=== PATIENT | male | born 1990 | race Caucasian/White ===

== ENCOUNTER 2018-11-15 12:21 | Inpatient (IN) | payer OTHER ==
[2018-11-15 15:08] VITALS: BMI 22.4
--- NOTE | 2018-11-15 15:42 | HP ---
COWS - Scale Resting Pulse: 1= [place] 81-100 Sweatin= Chills/Flushing Restless Observation: 1= Difficult to Sit Still Pupil Size: 0= Normal to Room Light Bone or Joint Aches: 2= Severe Diffuse Aches Runny Nose/ Eye Tearin= Runny Nose/Eyes GI Upset > 30mins: 2= Nausea/Diarrhea Tremor Observation: 2= Slight Tremor Visible Yawning Observation: 1= 1-2x During Session Anxiety or Irritability: 1=Feels Anxious/Irritable Goose Flesh Skin: 0=Smooth Skin COWS Score: 13 CIWA Score - Admission Criteria [facility] Guidelines: Admission for Medically Managed Detox: Requires at least one of the followin. CIWA greater than 12 2. Seizures within the past 24 hours 3. Delirium tremens within the past 24 hours 4. Hallucinations within the past 24 hours 5. Acute intervention needed for co occurring medical disorder 6. Acute intervention needed for co occurring psychiatric disorder 7. Severe withdrawal that cannot be handled at a lower level of care (continued vomiting, continued diarrhea, abnormal vital signs) requiring intravenous medication and/or fluids 8. Admission ROS [facility] Chief Complaint: heroin/benzo detox Allergies/Adverse Reactions: Allergies Allergy/AdvReac Type Severity Reaction Status Date / Time No Known Allergies Allergy Verified 11/15/18 14:59 History of Present Illness: Patient is a 28 yo M with no known PMhx presenting here for heroin and xanax detox. Says he is tired of using drugs and wants to do detox and rehab. Has been doing heroin for 5 years via IV. 25 bags a day. Last use last night. Total 20 bags last night. Overdosed over 10 times. Last overdose last week. Carries narcan pen with him. Started xanax 2 months ago. 4mg of xanax daily. last xanax use yesterday. 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 smokes half ppd. Exam Limitations: No Limitations - Ebola screening Have you traveled outside of the country in the last 21 days: No Have you had contact with anyone from an Ebola affected area: No Do you have a fever: No - Review of Systems Constitutional: Loss of Appetite, Unintentional Wgt. Loss Respiratory: denies: Cough, Shortness of Breath Cardiac: denies: Chest Pain, Palpitations Patient History - Smoking Cessation Smoking history: Current every day smoker Initiated information on smoking cessation: Yes 'Breaking Loose' booklet given: 11/15/18 - Substances abused Heroin Substance route: Injection Frequency: Daily Amount used: 25bags Age of first use: 23 Date of last use: 11/14/18 Benzodiazepine (Klonopin) Other (specify): 2mg Substance route: Oral Frequency: Daily Amount used: 2 sticks Age of first use: 25 Date of last use: 11/14/18 Alprazolam (Xanax) Other (specify): 2mg Substance route: Oral Frequency: Daily Amount used: 2 sticks Age of first use: 25 Date of last use: 11/14/18 Family Disease History - Family Disease History Family Disease History: Other: Father (bladder cancer) Admission Physical Exam S - Vital Signs Vital Signs: Vital Signs - 24 hr 11/15/18 14:56 Temperature 97.1 F L Pulse Rate 78 Respiratory 20 Rate Blood Pressure 149/87 - Physical General Appearance: Yes: No Apparent Distress Respiratory: Yes: Lungs Clear, No Respiratory Distress, No Accessory Muscle Use Cardiology: Yes: Regular Rhythm, S1, S2 Abdominal: Yes: Non Tender, Soft Extremities: No: Swelling Neurological: Yes: Fully Oriented Integumentary: Yes: Track [place] (LUE) - Diagnostic (1) Heroin abuse Current Visit: Yes Status: Acute (2) Heroin addiction Current Visit: Yes Status: Acute (3) Benzodiazepine abuse Current Visit: Yes Status: Acute (4) Tobacco dependence Current Visit: Yes Status: Acute Breathalyzer - Breathalyzer Breathalyzer: 0 Urine Drug Screen - Test Device Lot number: [id number] Expiration date: 07/30/20 - Control Is test valid?: Yes - Results Drug screen NEGATIVE: No Urine drug screen results: MET-Methamphetamine, FEN-Fentanyl, MOP-Opiates, MTD- Methadone, MDMA-Ecstasy Inpatient Rehab Admission - Rehab Decision to Admit Inpatient rehab admission?: No
[2018-11-15] MEDS ORDERED: MAG HYDROX/AL HYDROX/SIMETH 30 ML UNIT-DOSE CUP PO PRN (16:04)
[2018-11-15] MEDS ORDERED: METHADONE HCL 10 MG TABLET (FOR DETOX USE ONLY) PO ONE (16:04)
[2018-11-15] MEDS ORDERED: hydrOXYzine PAMOATE 25 MG CAPSULE (FP) PO PRN (16:04)
[2018-11-15] MEDS ORDERED: MAGNESIUM HYDROX 2400MG/30ML ORAL SUSPENSION 30 ML CUP PO PRN (16:04)
[2018-11-15] MEDS ORDERED: clonazePAM 0.5 MG TABLET PO PRN (16:04)
[2018-11-15] MEDS ORDERED: BISMUTH SUBSALICYLATE 524 MG/30 ML UD PO PRN (16:04)
[2018-11-15] MEDS ORDERED: MENTHOL/PHENOL 1 EACH UD MM PRN (16:04)
[2018-11-15] MEDS ORDERED: cloNIDine HCL 0.1 MG TABLET PO PRN (16:04)
[2018-11-15] MEDS ORDERED: IBUPROFEN 400 MG TABLET (FP) PO PRN (16:04)
[2018-11-15] MEDS ORDERED: MELATONIN 5 MG TABLETS PO PRN (16:04)
[2018-11-15] MEDS ORDERED: MAGNESIUM CITRATE 300 ML BOTTLE PO PRN (16:04)
[2018-11-15] MEDS ORDERED: ACETAMINOPHEN 325 MG TABLET (FP) PO PRN ×2 (16:04)
--- NOTE | 2018-11-15 16:06 | PN ---
Teaching Attending Note Name of Resident: Pearl Cardenas ATTENDING PHYSICIAN STATEMENT I saw and evaluated the patient. I reviewed the resident's note and discussed the case with the resident. I agree with the resident's findings and plan as documented. SUBJECTIVE:28 yo with heroin use disorder-IV- 20 bags/day. Last h/o OD- last week. Pt has narcan kit. Completed detox about 6 months ago- but relapsed. OBJECTIVE: Vital Signs - 24 hr 11/15/18 14:56 Temperature 97.1 F L Pulse Rate 78 Respiratory 20 Rate Blood Pressure 149/87 tremulous alert and oriented ASSESSMENT AND PLAN: opioid use disorder- start methadone detox protocol
[2018-11-15] MEDS: NICOTINE 21 MG/24 HOURS TOPICAL PATCH TD SCH (16:44)
[2018-11-15] MEDS: THIAMINE HCL 100 MG TABLET (FP) PO SCH (22:44)
[2018-11-16] MEDS ORDERED: METHADONE HCL 10 MG TABLET (FOR DETOX USE ONLY) ONE (08:45)
[2018-11-16] MEDS ORDERED: METHADONE HCL 5 MG TABLET (FOR DETOX USE ONLY) ONE (08:46)
[2018-11-16] MEDS: PRENATAL VITAMINS W/ FOLIC ACID TABLET (FP) PO SCH (09:49)
[2018-11-16] MEDS: NICOTINE 21 MG/24 HOURS TOPICAL PATCH TD SCH (09:51)
[2018-11-16 09:57] LABS: HEMATOCRIT 43.1 % (35.4-49); HEMOGLOBIN 14.4 GM/dL (11.7-16.9); MCH 28.8 pg (25.7-33.7); MCHC 33.3 g/dl (32.0-35.9); MEAN CELL VOLUME 86.4 fl (80-96); MEAN PLT VOLUME 7.8 fl (7.5-11.1); PLATELET COUNT 296 K/MM3 (134-434); RBC 4.99 M/mm3 (4.00-5.60); RDW 14.4 % (11.9-15.9); WHITE BLOOD COUNT 5.5 K/mm3 (4.0-10.0)
[2018-11-16] MEDS ORDERED: METHADONE (DETOX) 20 MG, METHADONE (DETOX) 5 MG PO ONE (10:00)
[2018-11-16 10:10] LABS: ALBUMIN 3.3 g/dl (3.4-5.0); BILIRUBIN,TOTAL 0.3 mg/dL (0.2-1); BLOOD UREA NITROGEN 18.5 mg/dL (7-18); CALCIUM 8.8 mg/dL (8.5-10.1); CREATININE 0.8 mg/dL (0.55-1.3); POTASSIUM 5.2 mmol/L (3.5-5.1)
[2018-11-16] MEDS ORDERED: diazePAM 5 MG TABLET PO PRN (11:36)
--- NOTE | 2018-11-16 11:38 | PN ---
BHS COWS - Scale Resting Pulse: 0= [place] 80 or Below Sweatin=Flushed/Facial Moisture Restless Observation: 1= Difficult to Sit Still Pupil Size: 0= Normal to Room Light Bone or Joint Aches: 2= Severe Diffuse Aches Runny Nose/ Eye Tearin= Nasal Congestion GI Upset > 30mins: 0= None Tremor Observation of Outstretched Hands: 2= Slight Tremor Visible Yawning Observation: 1= 1-2x During Session Anxiety or Irritability: 2=Irritable/Anxious Goose Flesh Skin: 0=Smooth Skin COWS Score: 11 BHS Progress Note (SOAP) Subjective: irritable agitation sweats shakes body aches restless interrupted sleep Objective: 11/16/18 11:37 Vital Signs Temperature 97.9 F 11/16/18 09:15 Pulse Rate 69 11/16/18 09:15 Respiratory Rate 18 11/16/18 09:15 Blood Pressure 113/75 11/16/18 09:15 O2 Sat by Pulse Oximetry (%) Laboratory Tests 11/16/18 11/16/18 08:00 08:00 WBC 5.5 RBC 4.99 Hgb 14.4 Hct 43.1 MCV 86.4 MCH 28.8 MCHC 33.3 RDW 14.4 Plt Count 296 MPV 7.8 Sodium 139 Potassium 5.2 H Chloride 105 Carbon Dioxide 32 Anion Gap 3 L BUN 18.5 H Creatinine 0.8 Est GFR (CKD-EPI)AfAm 139.91 Est GFR (CKD-EPI)NonAf 120.72 Random Glucose 84 Calcium 8.8 Total Bilirubin 0.3 AST 10 L ALT 17 Alkaline Phosphatase 71 Total Protein 6.0 L Albumin 3.3 L labs noted aaox3 ambulating no acute distress Assessment: 11/16/18 11:38 withdrawal sx Plan: continue detox increase fluids valium 10mg prn
[2018-11-16] MEDS: THIAMINE HCL 100 MG TABLET (FP) PO SCH (22:38)
[2018-11-17] MEDS: PRENATAL VITAMINS W/ FOLIC ACID TABLET (FP) PO SCH (09:55)
[2018-11-17] MEDS: NICOTINE 21 MG/24 HOURS TOPICAL PATCH TD SCH (09:55)
[2018-11-17] MEDS ORDERED: METHADONE HCL 10 MG TABLET (FOR DETOX USE ONLY) PO ONE (10:00)
--- NOTE | 2018-11-17 12:32 | PN ---
S COWS - Scale Resting Pulse: 0= [place] 80 or Below Sweatin= Chills/Flushing Restless Observation: 1= Difficult to Sit Still Pupil Size: 1= Pupils >than Normal Bone or Joint Aches: 2= Severe Diffuse Aches Runny Nose/ Eye Tearin= Nasal Congestion GI Upset > 30mins: 1= Stomach Cramp Tremor Observation of Outstretched Hands: 1= Tremor [place], Not Seen Yawning Observation: 1= 1-2x During Session Anxiety or Irritability: 2=Irritable/Anxious Goose Flesh Skin: 0=Smooth Skin COWS Score: 11 S Progress Note (SOAP) Subjective: alert,irritable,anxious,interrupted sleep,pain in the body and back Objective: 11/17/18 12:30 Vital Signs Temperature 97.5 F L 11/17/18 09:13 Pulse Rate 74 11/17/18 09:13 Respiratory Rate 18 11/17/18 09:13 Blood Pressure 131/73 11/17/18 09:13 O2 Sat by Pulse Oximetry (%) 11/17/18 12:30 Laboratory Last Values WBC 5.5 K/mm3 (4.0-10.0) 11/16/18 08:00 RBC 4.99 M/mm3 (4.00-5.60) 11/16/18 08:00 Hgb 14.4 GM/dL (11.7-16.9) 11/16/18 08:00 Hct 43.1 % (35.4-49) 11/16/18 08:00 MCV 86.4 fl (80-96) 11/16/18 08:00 MCH 28.8 pg (25.7-33.7) 11/16/18 08:00 MCHC 33.3 g/dl (32.0-35.9) 11/16/18 08:00 RDW 14.4 % (11.9-15.9) 11/16/18 08:00 Plt Count 296 K/MM3 (134-434) 11/16/18 08:00 MPV 7.8 fl (7.5-11.1) 11/16/18 08:00 Sodium 139 mmol/L (136-145) 11/16/18 08:00 Potassium 4.8 mmol/L (3.5-5.1) 11/17/18 08:20 Chloride 105 mmol/L (98-107) 11/16/18 08:00 Carbon Dioxide 32 mmol/L (21-32) 11/16/18 08:00 Anion Gap 3 MMOL/L (8-16) L 11/16/18 08:00 BUN 18.5 mg/dL (7-18) H 11/16/18 08:00 Creatinine 0.8 mg/dL (0.55-1.3) 11/16/18 08:00 Est GFR (CKD-EPI)AfAm 139.91 11/16/18 08:00 Est GFR (CKD-EPI)NonAf 120.72 11/16/18 08:00 Random Glucose 84 mg/dL (74-106) 11/16/18 08:00 Calcium 8.8 mg/dL (8.5-10.1) 11/16/18 08:00 Total Bilirubin 0.3 mg/dL (0.2-1) 11/16/18 08:00 AST 10 U/L (15-37) L 11/16/18 08:00 ALT 17 U/L (13-61) 11/16/18 08:00 Alkaline Phosphatase 71 U/L (45-117) 11/16/18 08:00 Total Protein 6.0 g/dl (6.4-8.2) L 11/16/18 08:00 Albumin 3.3 g/dl (3.4-5.0) L 11/16/18 08:00 RPR Titer Nonreactive (NONREACTIVE) 11/16/18 08:00 Assessment: 11/17/18 12:31 withdrawal symptom Plan: continue detox methadone regimen,encourage oral fluid
[2018-11-17] MEDS: THIAMINE HCL 100 MG TABLET (FP) PO SCH (23:05)
[2018-11-18] MEDS: METHOCARBAMOL 500 MG TABLET PO PRN ×2 (09:14→15:27)
[2018-11-18] MEDS ORDERED: METHADONE HCL 10 MG TABLET (FOR DETOX USE ONLY) ONE (09:30)
[2018-11-18] MEDS ORDERED: METHADONE HCL 5 MG TABLET (FOR DETOX USE ONLY) ONE (09:30)
[2018-11-18] MEDS ORDERED: METHADONE (DETOX) 10 MG, METHADONE (DETOX) 5 MG PO ONE (10:00)
[2018-11-18] MEDS: NICOTINE 21 MG/24 HOURS TOPICAL PATCH TD SCH (10:58)
[2018-11-18] MEDS: PRENATAL VITAMINS W/ FOLIC ACID TABLET (FP) PO SCH (10:58)
--- NOTE | 2018-11-18 14:25 | PN ---
BHS COWS - Scale Resting Pulse: 0= [place] 80 or Below Sweatin= Chills/Flushing Restless Observation: 1= Difficult to Sit Still Pupil Size: 0= Normal to Room Light Bone or Joint Aches: 2= Severe Diffuse Aches Runny Nose/ Eye Tearin= Nasal Congestion GI Upset > 30mins: 0= None Tremor Observation of Outstretched Hands: 1= Tremor [place], Not Seen Yawning Observation: 1= 1-2x During Session Anxiety or Irritability: 2=Irritable/Anxious Goose Flesh Skin: 0=Smooth Skin COWS Score: 9 BHS Progress Note (SOAP) Subjective: irritable sweats agitation Objective: 11/18/18 14:25 Vital Signs Temperature 98.2 F 11/18/18 13:52 Pulse Rate 74 11/18/18 13:52 Respiratory Rate 18 11/18/18 13:52 Blood Pressure 136/66 11/18/18 13:52 O2 Sat by Pulse Oximetry (%) aaox3 ambulating no acute distress Assessment: 11/18/18 14:25 withdrawals Plan: continue detox increase fluids
[2018-11-18] MEDS: THIAMINE HCL 100 MG TABLET (FP) PO SCH (23:18)
[2018-11-19] MEDS: NICOTINE 21 MG/24 HOURS TOPICAL PATCH TD SCH (09:14)
[2018-11-19] MEDS: PRENATAL VITAMINS W/ FOLIC ACID TABLET (FP) PO SCH (09:15)
[2018-11-19] MEDS: METHOCARBAMOL 500 MG TABLET PO PRN (09:36)
[2018-11-19 09:47] VITALS: BP 131/66; PULSE 75; TEMP 98
[2018-11-19] MEDS ORDERED: METHADONE HCL 10 MG TABLET (FOR DETOX USE ONLY) PO ONE (10:00)
--- NOTE | 2018-11-19 10:09 | PN ---
S CIWA - CIWA Score Nausea/Vomitin-No Nausea/No Vomiting Muscle Tremors: 1-None Visible, but [place] Anxiety: 1-Mildly Anxious Agitation: 1-Slight > Activity Paroxysmal Sweats: No Perspiration Orientation: 0-Oriented Tacttile Disturbances: 0-None Auditory Disturbances: 0-None Visual Disturbances: 0-None Headache: 1-Very Mild CIWA-Ar Total Score: 4 BHS Progress Note (SOAP) Subjective: alert,irritable,interrupted sleep Objective: 11/19/18 10:07 Vital Signs Temperature 98.0 F 11/19/18 09:47 Pulse Rate 75 11/19/18 09:47 Respiratory Rate 18 11/19/18 09:47 Blood Pressure 131/66 11/19/18 09:47 O2 Sat by Pulse Oximetry (%) Assessment: 11/19/18 10:08 stable for discharge Plan: discharge today,follow up with [facility]
--- NOTE | 2018-11-19 10:10 | DS ---
[facility] Detox Discharge Summary Admission Date: 11/15/18 Discharge Date: 11/19/18 - History Present History: Opioid Dependence Additional Comments: stable for discharge,follow up with [facility] rehab Pertinent Past History: nicotine dependence - Physical Exam Results Vital Signs: Vital Signs Temperature 98.0 F 11/19/18 09:47 Pulse Rate 75 11/19/18 09:47 Respiratory Rate 18 11/19/18 09:47 Blood Pressure 131/66 11/19/18 09:47 O2 Sat by Pulse Oximetry (%) - Treatment Hospital Course: Detox Protocol Followed, Detoxed Safely, Responded well, Discharged Condition Good, Rehab Referral Accepted Patient has Accepted a Rehab Referral to: [facility] - Medication Discharge Medications: Ambulatory Orders NK [No Known Home Medication] 11/15/18 - Diagnosis (1) Opioid dependence with withdrawal Current Visit: Yes Status: Acute (2) Nicotine dependence Current Visit: Yes Status: Acute - AMA Did Patient Leave Against Medical Advice: No
[2018-11-20] MEDS ORDERED: METHADONE HCL 5 MG TABLET (FOR DETOX USE ONLY) PO ONE (06:00)
== END 2018-11-19 12:52 | disposition home or self-care (01) | DRG 773 ==
LOC: YASAS 12:21 → Y6N 16:19
PROVIDERS: ADMIT Surgery; ATTEND Surgery
PROC: HZ2ZZZZ Detoxification Services for Substance Abuse Treatment (ICD-10-PCS; principal; 2018-11-15)
DX: F11.23 Opioid dependence with withdrawal (principal); F13.20 Sedative, hypnotic or anxiolytic dependence, uncomplicated; F17.210 Nicotine dependence, cigarettes, uncomplicated
CPT/HCPCS: 36415; 80053; 84132; 85027; 86480; 86593; 87389